=== PATIENT | male | born 1960 | race Two or more races ===

== ENCOUNTER 2016-10-09 10:29 | Emergency (ER) | payer OTHER ==
[2016-10-09 10:36] VITALS: BP 139/78; PULSE 94; TEMP 98.2; BMI 35.2
[2016-10-09] MEDS ORDERED: KETOROLAC TROMETHAMINE 60 MG/2 ML VIAL IM ONE (11:08)
[2016-10-09] MEDS ORDERED: KETOROLAC TROMETHAMINE 60 MG/2 ML VIAL ONE (11:13)
[2016-10-09 11:32] LABS: URINE APPEARANCE CLEAR; URINE BILIRUBIN NEGATIVE (NEGATIVE); URINE BLOOD NEGATIVE (NEGATIVE); URINE COLOR YELLOW; URINE GLUCOSE (UA) NEGATIVE (NEGATIVE); URINE KETONE NEGATIVE (NEGATIVE); URINE LEUK ESTERASE NEGATIVE (NEGATIVE); URINE NITRITE NEGATIVE (NEGATIVE); URINE PROTEIN NEGATIVE (NEGATIVE); URINE UROBILINOGEN NEGATIVE E.U./dl (0.2-1.0)
--- NOTE | 2016-10-09 11:46 | PDOC ---
History of Present Illness - General Chief Complaint: Back Pain Stated Complaint: BACK PAIN Time Seen by Provider: 10/09/16 10:48 History Source: Patient Exam Limitations: No Limitations - History of Present Illness Initial Comments: 10/09/16 11:01 55-year-old male presents to the ED with complaints of low back pain for the past week and a half. 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 Patient denies a previous workup including x-rays or CT. Patient states has had pain to the area in the past it is normally relieved with [id number] Tylenol or Motrin or icy hot. Patient states has tried these modalities with no improvement. Patient denies fever, chills, rash, or upper back pain. Patient denies history of diabetes, GI disorders, or kidney disease. Pt states pain is worsened with ambulation or standing. Patient denies any incontinence or saddle anesthesia. Occurred: reports: other Severity: reports: mild, moderate Pain Location: reports: back Method of Injury: Yes: unknown Loss of Consciousness: no loss of consciousness Past History - Past Medical History Allergies/Adverse Reactions: Allergies Allergy/AdvReac Type Severity Reaction Status Date / Time No Known Drug Allergies Allergy Verified 10/09/16 10:36 Home Medications: Ambulatory Orders Apremilast [Otezla] 30 mg PO BID 01/11/16 Hydrocodone/Acetaminophen [Hydrocodon-Acetaminophen 5-300] 1 each PO Q6H PRN # 60 tablet MDD 4 01/12/16 Metformin HCl 500 mg PO DAILY 01/12/16 Hypercholesterolemia: Yes Kidney Stones: Yes Liver Disease: Yes (FATTY LIVER) Other medical history: ARTHRITIS - Surgical History Appendectomy: Yes - Immunization History Immunization Up to Date: No - Psycho/Social/Smoking Cessation Hx Anxiety: No Suicidal Ideation: No Smoking Status: No Smoking History: Never smoked Have you smoked in the past 12 months: No Number of Cigarettes Smoked Daily: 0 If you are a former smoker, when did you quit?: 30YRS AGO Hx Alcohol Use: Yes (SOCIAL) Drug/Substance Use Hx: No Substance Use Type: None Hx Substance Use Treatment: No Review of Systems - Review of Systems Able to Perform ROS?: Yes Constitutional: No: Symptoms Reported HEENTM: No: Symptoms Reported Respiratory: No: Symptoms reported : No: Symptoms Reported Musculoskeletal: Yes: Back Pain Integumentary: No: Symptoms Reported Neurological: No: Symptoms reported Endocrine: No: Symptoms Reported Hematologic/Lymphatic: No: Symptoms Reported *Physical Exam - Vital Signs Last Vital Signs Temp Pulse Resp BP Pulse Ox 98.2 F 94 H 20 139/78 97 10/09/16 10:32 10/09/16 10:32 10/09/16 10:32 10/09/16 10:32 10/09/16 10:32 - Physical Exam General Appearance: Yes: Nourished, Appropriately Dressed. No: Apparent Distress HEENT: positive: EOMI Neck: positive: Supple. negative: Tender, Decreased range of motion Respiratory/Chest: positive: Lungs Clear, Normal Breath Sounds. negative: Respiratory Distress, Accessory Muscle Use Cardiovascular: positive: Regular Rhythm, Regular Rate. negative: Murmur Gastrointestinal/Abdominal: positive: Normal Bowel Sounds, Soft. negative: Distended Musculoskeletal: positive: Vertebral Tenderness (paraspinous muscle tenderness bilateral at l4-5 level). negative: CVA Tenderness Extremity: positive: Normal Capillary Refill Integumentary: positive: Normal Color, Warm, Moist Neurologic: positive: Motor Strength 5/5 (ambulatory, FWB to BLE , normal axial loading) ED Treatment Course - ADDITIONAL ORDERS Additional order review: Laboratory Results 10/09/16 11:15 Urine Color Yellow Urine Appearance Clear Urine pH 6.0 Ur Specific [place] 1.024 Urine Protein Negative Urine Glucose (UA) Negative Urine Ketones Negative Urine Blood Negative Urine Nitrite Negative Urine Bilirubin Negative Urine Urobilinogen Negative Ur Leukocyte Esterase Negative - RADIOLOGY Radiology Studies Ordered: Category Date Time Status SPINE-LUMBAR ONLY [RAD] Stat Radiology 10/09/16 11:07 Completed - Medications Given in the ED: ED Medications Discontinued Medications Generic Name Dose Route Start Last Admin Trade Name Freq PRN Reason Stop Dose Admin Ketorolac Tromethamine 60 mg 10/09/16 11:08 10/09/16 11:17 Toradol Injection - IM 10/09/16 11:09 60 mg ONCE ONE Administration Medical Decision Making - Medical Decision Making 10/09/16 11:05 Patient with low back pain. 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 Patient with likely lumbar strain without sciatica nerve involvement. Will rule out uti. Patient was ordered for urinalysis, lumbar x-ray and Toradol IM. 10/09/16 11:46 Laboratory Tests 10/09/16 11:15 Urine Glucose (UA) Negative Urine Blood Negative Urine Nitrite Negative Ur Leukocyte Esterase Negative 10/09/16 11:47 X-ray shows degenerative changes with what she with no signs of heavy vascular calcifications or SI joint involvement. Patient be discharged home with recommended patient to follow-up with orthopedic fell and to take NSAIDs such as Motrin for discomfort. 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 *DC/Admit/Observation/Transfer Diagnosis at time of Disposition: Strain of lumbar region Qualifiers: Encounter type: initial encounter Qualified Code(s): S39.012A - Strain of muscle, fascia and tendon of lower back, initial encounter - Discharge Dispostion Disposition: HOME Condition at time of disposition: Good - Referrals Referrals: Jean Garcia [Primary Care Provider] - Adam Davis MD [Staff Physician] - - Patient Instructions Printed Discharge Instructions: DI for Low Back Pain Additional Instructions: Take motrin 600mg every 8 hours for discomfort. Follow up with referred orthopedist. Return to the Ed if s/s worsen.
== END 2016-10-09 11:52 | disposition home or self-care (01) ==
LOC: JERFT 10:29
PROC: 3E0233Z Introduction of Anti-inflammatory into Muscle, Percutaneous Approach (ICD-10-PCS; principal; 2016-10-09)
DX: S39.012A Strain of muscle, fascia and tendon of lower back, initial encounter (principal); X50.0XXA Overexertion from strenuous movement or load, initial encounter; Y93.H9 Activity, other involving exterior property and land maintenance, building and construction; Y92.128 Other place in nursing home as the place of occurrence of the external cause; Y99.0 Civilian activity done for income or pay
CPT/HCPCS: 72100-TC; 81003; 99281-25

== ENCOUNTER 2017-01-21 15:11 | Emergency (ER) | payer OTHER ==
[2017-01-21 15:16] VITALS: BP 147/89; PULSE 75; TEMP 98; BMI 32.8
[2017-01-21] MEDS ORDERED: diazePAM 5 MG TABLET PO ONE (15:51)
[2017-01-21] MEDS ORDERED: KETOROLAC TROMETHAMINE 60 MG/2 ML VIAL IM ONE (15:51)
[2017-01-21] MEDS ORDERED: KETOROLAC TROMETHAMINE 60 MG/2 ML VIAL ONE (15:53)
[2017-01-21] MEDS ORDERED: diazePAM 5 MG TABLET ONE (15:54)
--- NOTE | 2017-01-21 16:02 | PDOC ---
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) Past History - Past Medical History Allergies/Adverse Reactions: Allergies Allergy/AdvReac Type Severity Reaction Status Date / Time No Known Drug Allergies Allergy Verified 01/21/17 15:12 Home Medications: Ambulatory Orders Apremilast [Otezla] 30 mg PO BID 01/11/16 Metformin HCl 500 mg PO DAILY 01/12/16 Cyclobenzaprine HCl [Flexeril 10 mg] 10 mg PO BID PRN 01/21/17 Meloxicam [Mobic (Nf) -] 15 mg PO ASDIR 01/21/17 Dialysis: Yes Hypercholesterolemia: Yes Kidney Stones: Yes Liver Disease: Yes (FATTY LIVER) Other medical history: psoriasis - Surgical History Appendectomy: Yes Neurologic Surgery: Yes (lt shoulder, hand) - Immunization History Immunization Up to Date: No - Psycho/Social/Smoking Cessation Hx Anxiety: No Suicidal Ideation: No Smoking Status: No Smoking History: Never smoked Have you smoked in the past 12 months: No Number of Cigarettes Smoked Daily: 0 If you are a former smoker, when did you quit?: 30YRS AGO Information on smoking cessation initiated: No Hx Alcohol Use: No Drug/Substance Use Hx: No Substance Use Type: None Hx Substance Use Treatment: No Review of Systems - Review of Systems Constitutional: No: Chills, Fever, Malaise Respiratory: No: Cough ABD/GI: No: Symptoms Reported : Yes: Frequency. No: Dysuria, Hematuria, Incontinence Musculoskeletal: Yes: Back Pain, Muscle Pain. No: Neck Pain Integumentary: No: Symptoms Reported Neurological: No: Numbness, Paresthesia, Tingling *Physical Exam - Vital Signs Last Vital Signs Temp Pulse Resp BP Pulse Ox 98.0 F 75 18 147/89 100 01/21/17 15:12 01/21/17 15:12 01/21/17 15:12 01/21/17 15:12 01/21/17 15:12 - Physical Exam General Appearance: Yes: Appropriately Dressed, Mild Distress. No: Apparent Distress HEENT: negative: TMs Normal Neck: positive: Supple. negative: Tender, Rigid Respiratory/Chest: positive: Lungs Clear, Normal Breath Sounds. negative: Respiratory Distress, Accessory Muscle Use Cardiovascular: positive: Regular Rhythm, Regular Rate. 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 negative: Sensory Deficit, Babinski ED Treatment Course - Medications Given in the ED: ED Medications Discontinued Medications Generic Name Dose Route Start Last Admin Trade Name Freq PRN Reason Stop Dose Admin Diazepam 5 mg 01/21/17 15:51 01/21/17 15:58 Valium - PO 01/21/17 15:52 5 mg ONCE ONE Administration Ketorolac Tromethamine 60 mg 01/21/17 15:51 01/21/17 15:58 Toradol Injection - IM 01/21/17 15:52 60 mg ONCE ONE Administration Medical Decision Making - Medical Decision Making 01/21/17 16:51 feeling much better post toradol and valium; has appt with local MD on Monday with MRI to be scheduled; UA= wnl *DC/Admit/Observation/Transfer Diagnosis at time of Disposition: Lower back pain Qualifiers: Chronicity: acute Back pain laterality: midline Sciatica presence: without sciatica Qualified Code(s): M54.5 - Low back pain - Discharge Dispostion Disposition: HOME Condition at time of disposition: Stable Admit: No - Patient Instructions Additional Instructions: please see local MD on Monday as planned; use meds by Local MD starting tomorrow - Post Discharge Activity Work/School Note: Back to Work
[2017-01-21 16:24] LABS: URINE APPEARANCE CLEAR; URINE BILIRUBIN NEGATIVE (NEGATIVE); URINE BLOOD NEGATIVE (NEGATIVE); URINE COLOR YELLOW; URINE GLUCOSE (UA) NEGATIVE (NEGATIVE); URINE KETONE NEGATIVE (NEGATIVE); URINE LEUK ESTERASE NEGATIVE (NEGATIVE); URINE NITRITE NEGATIVE (NEGATIVE); URINE PROTEIN NEGATIVE (NEGATIVE); URINE UROBILINOGEN NEGATIVE E.U./dl (0.2-1.0)
== END 2017-01-21 17:04 | disposition home or self-care (01) ==
LOC: JERFT 15:11
PROC: 3E0233Z Introduction of Anti-inflammatory into Muscle, Percutaneous Approach (ICD-10-PCS; principal; 2017-01-21)
DX: M54.5 Low back pain (principal); X50.0XXA Overexertion from strenuous movement or load, initial encounter; Y93.H9 Activity, other involving exterior property and land maintenance, building and construction; Y92.128 Other place in nursing home as the place of occurrence of the external cause; Y99.0 Civilian activity done for income or pay; E11.9 Type 2 diabetes mellitus without complications; Z79.84 Long term (current) use of oral hypoglycemic drugs; E78.00 Pure hypercholesterolemia, unspecified; L40.9 Psoriasis, unspecified; Z87.442 Personal history of urinary calculi
CPT/HCPCS: 81003; 99281-25

== ENCOUNTER → 2017-02-27 | Emergency (ER) | payer OTHER ==
[~2017-02-27] MED LIST: ACETAMINOPHEN 325 MG TABLET (FP) ONE; ACETAMINOPHEN 500 MG TABLET (FP) PO ONE
[2017-02-27 10:25] VITALS: BMI 33.6
[2017-02-27 11:10] LABS: BASOPHIL 0.6 % (0-2.0); MCH 30.6 pg (25.7-33.7); MCHC 32.9 g/dl (32.0-35.9); MEAN CELL VOLUME 92.9 fl (80-96); MEAN PLT VOLUME 9.1 fl (7.5-11.1); NEUTROPHILS 71.4 % (42.8-82.8); PLATELET COUNT 175 K/MM3 (134-434); RDW 13.7 % (11.9-15.9); WHITE BLOOD COUNT 7.5 K/mm3 (4.0-10.0)
[2017-02-27 11:24] LABS: INR 1.15 (0.82-1.09); PROTHROMBIN TIME (PATIENT) 12.7 SEC (9.98-11.88)
[2017-02-27 11:30] LABS: ALBUMIN 3.8 g/dl (3.4-5.0); ALK PHOS 71 U/L (45-117); ANION GAP 10 (8-16); BILIRUBIN,TOTAL 0.5 mg/dL (0.2-1.0); CALCIUM 8.8 mg/dL (8.5-10.1); CO2 26 mmol/L (21-32); COCKROFT - GAULT 164.47; CREATININE 0.7 mg/dL (0.7-1.3); GLUCOSE,RANDOM 109 mg/dL (74-106); SGPT/ALT 40 U/L (12-78)
[2017-02-27 11:33] LABS: SGOT/AST 32 U/L (15-37)
--- NOTE | 2017-02-27 11:33 | PDOC ---
History of Present Illness - General Chief Complaint: Pain, Acute Stated Complaint: LEG PAIN Time Seen by Provider: 02/27/17 10:30 History Source: Patient Exam Limitations: No Limitations - History of Present Illness Initial Comments: 02/27/17 11:24 CHIEF COMPLAINT: Leg pain HISTORY OF PRESENT ILLNESS: This is a 56 year old male with a history of psoriasis and psoriatic arthritis on apremilast and NIDDM who presents for evaluation of left leg pain since Monday (3 days). He traveled to [facility] ( 5 hr flight) on 02/08. His leg began hurting while he was there, and he flew back yesterday. He denies injury or strain. He denies smoking, recent trauma or surgery, family/personal history of hypercoaguability, and testosterone use. He has not had chest pain or shortness of breath. V/s on arrival are unremarkable. PCP is Dr. Garcia (patient saw him in the office today and was sent here for further evaluation) REVIEW OF SYSTEMS: GENERAL/CONSTITUTIONAL: No fever or chills. No weakness. No weight change. HEAD, EYES, EARS, NOSE AND THROAT: No change in vision. No ear pain or discharge. No sore throat. CARDIOVASCULAR: No chest pain or palpitations. RESPIRATORY: No cough, wheezing, or shortness of breath. GASTROINTESTINAL: No nausea, vomiting, diarrhea or constipation. GENITOURINARY: No dysuria, frequency, or change in urination. MUSCULOSKELETAL: Left calf, posterior knee, and thigh pain. SKIN: No rash or easy bruising. NEUROLOGIC: No headache, vertigo, loss of consciousness, or loss of sensation. PSYCHIATRIC: No depression or anxiety. ENDOCRINE: No increased thirst. No abnormal weight change. HEMATOLOGIC/LYMPHATIC: No anemia, easy bleeding, or history of blood clots. ALLERGIC/IMMUNOLOGIC: No hives or skin allergy. No latex allergy. PHYSICAL EXAM: GENERAL: The patient is awake, alert, and fully oriented, in no acute distress. HEAD: Normal with no signs of trauma. ENT: Pupils equal, round and reactive to light, extraocular movements intact, sclera anicteric, conjunctiva clear. Neck supple. LUNGS: Clear to auscultation bilaterally. Normal excursion. No respiratory distress or use of accessory muscles. CV: RRR, S1/S2, no MRG. Cap refill < 2 sec. ABDOMEN: Soft, non-distended, non-tender. EXTREMITIES: Left calf tenderness, left posterior knee and thigh tenderness. No edema, warmth, or erythema. Normal ROM of knee. NEUROLOGICAL: Normal speech, normal gait. CN II-XII grossly intact. PSYCH: Normal mood, normal affect. SKIN: Warm, dry, normal turgor, no rashes or lesions noted. Past History - Past Medical History Allergies/Adverse Reactions: Allergies Allergy/AdvReac Type Severity Reaction Status Date / Time No Known Drug Allergies Allergy Verified 02/27/17 10:21 Home Medications: Ambulatory Orders Apremilast [Otezla] 30 mg PO BID 01/11/16 Metformin HCl 500 mg PO DAILY 01/12/16 Tramadol HCl/Acetaminophen [Tramadol-Acetaminophn 37.5-325] 1 each PO Q8H PRN # 20 tablet MDD 3 02/27/17 Diabetes: Yes Dialysis: Yes Hypercholesterolemia: Yes Kidney Stones: Yes Liver Disease: Yes (FATTY LIVER) Other medical history: PSORIASIS ARITHRITIS - Surgical History Appendectomy: Yes Neurologic Surgery: Yes (lt shoulder, hand) - Immunization History Immunization Up to Date: No - Psycho/Social/Smoking Cessation Hx Anxiety: No Suicidal Ideation: No Smoking Status: No Smoking History: Never smoked Have you smoked in the past 12 months: No Number of Cigarettes Smoked Daily: 0 If you are a former smoker, when did you quit?: 30YRS AGO Information on smoking cessation initiated: No Hx Alcohol Use: No Drug/Substance Use Hx: No Substance Use Type: None Hx Substance Use Treatment: No *Physical Exam - Vital Signs Last Vital Signs Temp Pulse Resp BP Pulse Ox 98.1 F 74 18 147/78 100 02/27/17 10:21 02/27/17 10:21 02/27/17 10:21 02/27/17 10:21 02/27/17 10:21 ED Treatment Course - LABORATORY CBC & Chemistry Diagram: 02/27/17 10:54 02/27/17 10:54 - ADDITIONAL ORDERS Additional order review: 02/27/17 10:54 RBC 5.03 MCV 92.9 MCHC 32.9 RDW 13.7 MPV 9.1 Neutrophils % 71.4 Lymphocytes % 20.0 D Monocytes % 7.0 Eosinophils % 1.0 D Basophils % 0.6 - RADIOLOGY Radiology Studies Ordered: Category Date Time Status DUPLEX VASCUL US-1 LEG [US] Stat Ultrasound 02/27/17 10:43 Ordered - Medications Given in the ED: ED Medications Discontinued Medications Generic Name Dose Route Start Last Admin Trade Name Gold PRN Reason Stop Dose Admin Acetaminophen 975 mg 02/27/17 10:44 02/27/17 11:02 Tylenol - PO 02/27/17 10:45 975 mg ONCE ONE Administration Medical Decision Making - Medical Decision Making 02/27/17 11:35 A/P: 56 year old male with non-traumatic left calf, posterior knee, and thigh pain. 1. Basic labs 2. Tylenol 975 mg for pain 3. Duplex u/s to r/o DVT 4. Re-assess 02/27/17 11:55 Labs unremarkable. U/s negative for DVT. Will dc with PCP followup. *DC/Admit/Observation/Transfer Diagnosis at time of Disposition: Leg pain Qualifiers: Laterality: left Qualified Code(s): M79.605 - Pain in left leg - Discharge Dispostion Admit: No - Prescriptions Prescriptions: Tramadol HCl/Acetaminophen [Tramadol-Acetaminophn 37.5-325] 1 each PO Q8H PRN # 20 tablet MDD 3 PRN Reason: Pain - Referrals Referrals: Jean Garcia [Primary Care Provider] - Call tomorrow - Patient Instructions Printed Discharge Instructions: DI for Leg Pain Additional Instructions: You were seen today for calf/knee/thigh pain. Your ultrasound is negative for blood clots and your blood work is normal. Take pain medications as needed. Follow up with your primary care doctor this week. Return for worsening pain, swelling, or any other concerning symptoms. - Post Discharge Activity Work/School Note: Back to Work
[2017-02-27 12:17] VITALS: BP 132/70; PULSE 73; TEMP 98
== END | disposition home or self-care (01) ==
LOC: JER 10:19
DX: M79.605 Pain in left leg (principal); L40.50 Arthropathic psoriasis, unspecified; E11.9 Type 2 diabetes mellitus without complications; Z79.84 Long term (current) use of oral hypoglycemic drugs
CPT/HCPCS: 36415; 80053; 85025; 85610; 93971-TC; 99283-25

== ENCOUNTER 2017-04-14 07:48 | Inpatient (IN) | payer OTHER ==
[2017-03-24 10:50] VITALS: BMI 32.8
--- NOTE | 2017-04-05 14:28 | HP ---
[facility] - Chief Complaint Chief Complaint: left knee pain - Past Medical History Allergies/Adverse Reactions: Allergies Allergy/AdvReac Type Severity Reaction Status Date / Time No Known Drug Allergies Allergy Verified 03/24/17 10:31 - Current Medications Current Medications: Home Medications Medication Instructions Recorded Apremilast [Otezla] 30 mg PO BID 01/11/16 Metformin HCl 500 mg PO DAILY 01/12/16 Acetaminophen [Tylenol -] 500 mg PO BID 03/24/17 Clobetasol Prop 0.05% Tp Oint 60 gm TD DAILY 03/24/17 [Temovate (Nf)] Clobetasol Propionate/Emoll 100 gm TP DAILY 03/24/17 [Olux-E 0.05% Foam] Naproxen [Naprosyn -] 500 mg PO BID 03/24/17 Satellite Physical Exam - Physical Examination General Appearance: Well Nourished, Well Developed, Alert & Oriented x3 ENT: Clear Lung: Normal air movement Heart: Regular rate & rhythm Extremities: Other (left knee- + swelling, + ttp medially, decr rom, nvi xrays show medial compartment djd) Neurological: Intact, Alert, Oriented Satellite Impression/Plan - Impression/Plan Impression: left knee medial djd Operative Procedure: left medial jailene ukr Date to be Performed: 04/14/17
[~2017-04-14 07:48] MED LIST changes: -ACETAMINOPHEN 325 MG TABLET (FP) ONE; -ACETAMINOPHEN 500 MG TABLET (FP) PO ONE; +ROPIVICAINE 0.2%/MORPH PF/KETOROLAC - 51ML DISP.SYRINGE IA ONE
[2017-04-14] MEDS ORDERED: oxyCODONE HCL 10 MG SUSTAINED ACTING TABLET PO ONE (08:06)
[2017-04-14] MEDS ORDERED: GABAPENTIN 300 MG CAPSULE (FP) PO ONE (08:06)
[2017-04-14] MEDS ORDERED: TRANEXAMIC ACID 1000 MG/10 ML VIAL IVPUSH ONE (08:06)
[2017-04-14] MEDS ORDERED: CEFAZOLIN 2 GM in DEXTROSE 5%-WATER - 50 ML IVPB ONE (08:06)
[2017-04-14] MEDS ORDERED: CELECOXIB 200 MG CAPSULE PO ONE (08:06)
[2017-04-14] MEDS ORDERED: MIDAZOLAM HCL 2 MG/2 ML SINGLE DOSE VIAL ONE (09:26)
[2017-04-14] MEDS ORDERED: DEXAMETHASONE SOD PHOSPHATE/PF 10 MG/ML SDV ONE (09:27)
[2017-04-14] MEDS ORDERED: PROPOFOL 20 ML ONE ×2 (10:29→10:33)
[2017-04-14] MEDS ORDERED: VANCOMYCIN 1,000 MG VIAL (RESTRICTED TO ID ONLY) ONE (10:35)
[2017-04-14] MEDS ORDERED: ceFAZolin SODIUM 1 GM VIAL ONE ×2 (10:35)
[2017-04-14] MEDS ORDERED: THROMBIN (BOVINE) 5,000 UNIT VIAL TP ONE (11:31)
[2017-04-14] MEDS ORDERED: ROPIVICAINE 0.2%/MORPH PF/KETOROLAC - 51ML DISP.SYRINGE IA ONE (11:52)
[2017-04-14] MEDS ORDERED: MAG HYDROX/AL HYDROX/SIMETH 30 ML UNIT-DOSE CUP PO PRN (12:20)
[2017-04-14] MEDS ORDERED: ONDANSETRON 4 MG/2 ML VIAL IVPB PRN (12:20)
--- NOTE | 2017-04-14 12:23 | SURG ---
Surgery Clinical Trial Leader Note Clinical Trial Leader: Marzena Resendiz PA-C Date of Service: 04/14/17 Diagnosis: left knee medial djd Procedure: left medial jailene ukr I was present for the entirety of the operative procedure. For further detail, please refer to operative report. Visit type - Case Type Case Type: Scheduled Admission
--- NOTE | 2017-04-14 12:23 | OP ---
Operative Note - Note: Operative Date: 04/14/17 Pre-Operative Diagnosis: left knee medial djd Operation: left medial jailene ukr Post-Operative Diagnosis: Same as Pre-op Surgeon: Adam Davis Registered Nurse Fetal: Marzena Resendiz Anesthesiologist/EVS TECH: Juan Pablo Peterson Anesthesia: Spinal Estimated Blood Loss (mls): 150 Fluid Volume Replaced (mls): 800 Operative Report Dictated: Yes
[2017-04-14] MEDS ORDERED: LACTATED RINGERS SOLUTION 1,000 ML IV SCH (12:30)
[2017-04-14] MEDS ORDERED: oxyCODONE HCL 5 MG TABLET PO PRN ×2 (12:42)
[2017-04-14] MEDS: ACETAMINOPHEN 325 MG TABLET (FP) PO SCH ×4 (13:24→23:11)
[2017-04-14] MEDS ORDERED: INSULIN SLIDING SCALE (NOVOLOG) 1 VIAL SQ SCH ×2 (16:30)
[2017-04-14] MEDS: INSULIN SLIDING SCALE (NOVOLOG) 1 VIAL SQ SCH (16:42)
[2017-04-14] MEDS: CEFAZOLIN 1 GM/D5W 50 ML IVPB SCH (17:43)
[2017-04-14] MEDS: GABAPENTIN 300 MG CAPSULE (FP) PO SCH (21:57)
[2017-04-14] MEDS: SENNOSIDES/DOCUSATE COMBO (SENNA PLUS) TABLET (UD) PO SCH (21:58)
[2017-04-15] MEDS: CEFAZOLIN 1 GM/D5W 50 ML IVPB SCH (01:58)
[2017-04-15 06:45] VITALS: BP 137/72; PULSE 80; TEMP 98.1
[2017-04-15] MEDS: ACETAMINOPHEN 325 MG TABLET (FP) PO SCH ×2 (06:46→11:42)
[2017-04-15] MEDS: INSULIN SLIDING SCALE (NOVOLOG) 1 VIAL SQ SCH ×2 (06:47→11:41)
[2017-04-15] MEDS ORDERED: metFORMIN HCL 500 MG TABLET (FP) PO SCH (07:00)
[2017-04-15] MEDS ORDERED: ASPIRIN 325 MG TABLET PO SCH (08:00)
[2017-04-15 08:10] LABS: MCH 30.8 pg (25.7-33.7); MCHC 33.3 g/dl (32.0-35.9); MEAN CELL VOLUME 92.4 fl (80-96); MEAN PLT VOLUME 9.5 fl (7.5-11.1); PLATELET COUNT 184 K/MM3 (134-434); RDW 13.1 % (11.9-15.9); WHITE BLOOD COUNT 15.2 K/mm3 (4.0-10.8)
[2017-04-15 08:20] LABS: ANION GAP 7 (8-16); CALCIUM 9.3 mg/dl (8.4-10.2); CO2 24 mmol/L (22-28); CREATININE 0.7 mg/dl (0.6-1.3); GLUCOSE,RANDOM 167 mg/dl (74-106)
[2017-04-15] MEDS: GABAPENTIN 300 MG CAPSULE (FP) PO SCH (09:20)
[2017-04-15] MEDS: SENNOSIDES/DOCUSATE COMBO (SENNA PLUS) TABLET (UD) PO SCH (09:20)
--- NOTE | 2017-04-15 09:37 | SPEC ---
DATE OF OPERATION: 04/14/2017 OPERATION: Left medial unicompartmental knee replacement with robotic-assisted navigation (MAKOplasty) and patelloplasty. PREOPERATIVE DIAGNOSIS: Degenerative joint disease, left knee. POSTOPERATIVE DIAGNOSIS: Degenerative joint disease, left knee. SURGEON: Adam Davis M.D. [employer] CONSULTANT: Ina Doherty at [facility]. ANESTHESIA: Spinal and regional. CLOSURE: No. 4 femur, No. 4 tibia, 8 mm polyethylene, No. 1 Vicryl to fascia, 0 and 2-0 subcutaneous and 3-0 Monocryl subcuticular to skin with skin glue, 4-0 undyed Vicryl for pin sites. ESTIMATED BLOOD LOSS: Negligible. TOURNIQUET TIME: Less than 30 minutes. COMPLICATIONS: None. CONDITION: To recovery room in stable condition. PROCEDURE: Patient was taken to the operating room. Spinal and femoral block anesthesia was administered by the anesthesiologist. IV Kefzol and TXA were administered prophylactically prior to the case. A well-padded pneumatic tourniquet was placed on the left proximal thigh. The left lower extremity was prepped and draped in the usual sterile fashion. A 6 cm longitudinal incision was made along the medial retinaculum from mid patella toward the tibial tubercle. Hemostasis was achieved using Bovie cautery. Sharp dissection was carried down to the level of the capsule, which was opened the entire length of incision. A subperiosteal dissection in the anterior medial proximal tibia. Periosteal elevator was used to facilitate this dissection. Partial fat pad excision was performed to gain visualization. A femoral and tibial checkpoint were malleted into place. Two bicortical pins were drilled through small stab incisions into the femur 1 handbreadth above the patella. Two bicortical pins were drilled into the tibia 1 handbreadth below the tibial tubercle through small stab incisions as well. To these, pins were attached to clamp and the navigation arrays. The knee was then registered with the navigation device by ascertaining the center of rotation of the hip, both the medial and lateral malleoli, at approximately 50 points on the tibia and femur. Registration was within RAYMUNDO parameters, being less than half a millimeter. At this time, the medial osteophytes on both the femur and tibia were removed by use of rongeur. The knee was taken through a range of motion and with stressing the medial compartment open at 0, 30, 60, 90 and 120 degrees. Stress points were obtained in order to develop a flexion/extension and a tightness/looseness graph. The robotic navigation device obtained a virtual tracking of the knee and found that the traction was in excellent position. The components were manipulated virtually in order to obtain a flexion/extension, tightness/looseness graph which was then +/- 1 mm. The robot was then brought into the field and registered with the navigation device. The robot was then used to mark the bone on both the femur and the tibia to the specifications and direction of the navigation device. All excess bone and osteophytes and cartilage were removed, including the medial meniscus. Care was taken to protect the MCL throughout the case. The trial components were then placed into the knee with the appropriate polyethylene plastic trial liner. The knee was taken through a range of motion and the graph on the navigation device was then used again to confirm ideal position of the components and ideal tightness/looseness of the components. The trial components were removed, along with the checkpoints and the array. The knee was exsanguinated with an Esmarch bandage and tourniquet inflated to 175 mmHg. The knee was post-antibiotic irrigated and then dried and then Avitene and Gelfoam were placed to aid in hemostasis. The real components were then cemented in using modern generation cement techniques with antibiotics, cement and pressurization. All excess cement was removed. The knee was thoroughly inspected to remove any excess cement and bone fragments. The real polyethylene component was then clipped into place. Range of motion revealed excellent range of motion and good tensioning throughout. The knee was post-antibiotic irrigated. The fascia was closed using 2-0 Vicryl interrupted suture. The tourniquet was deflated. Total tourniquet time was less than 30 minutes. Hemostasis was obtained. Another dose of TXA was administered. The subcutaneous was closed with 2-0 Vicryl, 3-0 Monocryl subcuticular for skin. A pain cocktail was infused throughout the soft tissue. The pin sites were irrigated and closed with 4-0 Vicryl and skin glue was used for all incisions. Sterile Aquacel dressing was placed on all incisions followed by a dressing from the toes to the thigh. Patient was transferred to the recovery room in stable condition. No complications. Jarret [id number]
[2017-04-15] MEDS ORDERED: PANTOPRAZOLE 40 MG TABLET (FP) PO SCH (10:00)
[2017-04-15] MEDS ORDERED: MULTIVITAMINS (DAILY MVI) TABLET (FP) PO SCH (10:00)
[2017-04-15] MEDS ORDERED: PATIENT'S OWN MEDICATION (NON-FORMULARY) (Apremilast [Otezla] 30 MG) PO SCH (10:00)
== END 2017-04-15 13:10 | disposition home health service (06) | DRG 470 ==
LOC: FM/S 07:48 → EDSTATUS 09:30 → FM/S 13:31
PROVIDERS: ADMIT Orthopaedic Surgery; ATTEND Orthopaedic Surgery
PROC: 0QQF0ZZ Repair Left Patella, Open Approach (ICD-10-PCS; 2017-04-14)
PROC: 8E0Y0CZ Robotic Assisted Procedure of Lower Extremity, Open Approach (ICD-10-PCS; 2017-04-14)
PROC: 0SRD0L9 Replacement of Left Knee Joint with Medial Unicondylar Synthetic Substitute, Cemented, Open Approach (ICD-10-PCS; principal; 2017-04-14 10:47)
DX: M17.12 Unilateral primary osteoarthritis, left knee (principal); E66.9 Obesity, unspecified; Z68.32 Body mass index [BMI] 32.0-32.9, adult; E11.9 Type 2 diabetes mellitus without complications; Z79.84 Long term (current) use of oral hypoglycemic drugs; G47.30 Sleep apnea, unspecified
CPT/HCPCS: 36415; 73560-TC-LT; 80048; 85027; 94010; 94760; 97116-GP; 97161-GP

== ENCOUNTER 2019-05-12 20:57 | Emergency (ER) | payer OTHER ==
[2019-05-12 21:07] VITALS: BP 151/77; PULSE 70; TEMP 98.9; BMI 34.9
--- NOTE | 2019-05-12 21:35 | PDOC ---
History of Present Illness - General Chief Complaint: Pain Stated Complaint: BACK PAIN/WORK INJURY Time Seen by Provider: 05/12/19 21:31 - History of Present Illness Initial Comments: 05/12/19 21:34 58 -year-old male with lower back pain after lifting. No loss of bowel or bladder function or radicular symptoms. 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 Past History - Past Medical History Allergies/Adverse Reactions: Allergies Allergy/AdvReac Type Severity Reaction Status Date / Time No Known Drug Allergies Allergy Verified 05/12/19 21:04 Home Medications: Ambulatory Orders Apremilast [Otezla] 30 mg PO BID 01/11/16 metFORMIN HCL [Metformin HCl] 500 mg PO DAILY 01/12/16 Clobetasol Prop 0.05% Tp Oint [Temovate (Nf)] 60 gm TD DAILY 03/24/17 Cyclobenzaprine HCl [Flexeril 10 mg] 10 mg PO HS PRN #10 tablet 05/12/19 Anemia: No Asthma: No (CHILDHOOD) Cancer: No Cardiac Disorders: No CVA: No COPD: No CHF: No Dementia: No Diabetes: Yes (PRE-DIABETIC) Dialysis: Yes GI Disorders: No Disorders: No HTN: No Hypercholesterolemia: Yes Kidney Stones: Yes Liver Disease: Yes (FATTY LIVER) Seizures: No Thyroid Disease: No - Surgical History Abdominal Surgery: Yes (UMBILICAL HERNIA REPAIR OPEN) Appendectomy: Yes Cholecystectomy: No Neurologic Surgery: Yes (lt shoulder, hand) Orthopedic Surgery: Yes (RIGHT HAND TENDON REPAIR, LEFT SHOULDER OPEN TENDON REPAIR) - Immunization History Immunization Up to Date: No - Suicide/Smoking/Psychosocial Hx Smoking Status: No Smoking History: Former smoker Have you smoked in the past 12 months: No Number of Cigarettes Smoked Daily: 0 If you are a former smoker, when did you quit?: 30YRS AGO Information on smoking cessation initiated: No Hx Alcohol Use: No Drug/Substance Use Hx: No Substance Use Type: Alcohol Hx Substance Use Treatment: No Review of Systems - Review of Systems Musculoskeletal: Yes: Back Pain *Physical Exam - Vital Signs Last Vital Signs Temp Pulse Resp BP Pulse Ox 98.9 F 70 18 151/77 100 05/12/19 21:04 05/12/19 21:04 05/12/19 21:04 05/12/19 21:04 05/12/19 21:04 - Physical Exam Comments: 05/12/19 21:34 L spine skin color and temperature are normal. Range of motion is slightly limited. Mild right and left paralumbar musculature spasm and tenderness. No midline tenderness. 5 out of 5 strength bilateral lower extremities without gross sensory motor deficits. Neurovascular intact. Thighs and calves are soft and nontender. Medical Decision Making - Medical Decision Making 05/12/19 21:33 L spine strain Toradol in the emergency room follow-up with neurosurgery discussed use of home medications. 05/12/19 21:33 *DC/Admit/Observation/Transfer Diagnosis at time of Disposition: Lumbar spine strain - Discharge Dispostion Disposition: HOME Condition at time of disposition: Stable Decision to Admit order: No - Prescriptions Prescriptions: Cyclobenzaprine HCl [Flexeril 10 mg] 10 mg PO HS PRN #10 tablet PRN Reason: Muscle Spasms - Referrals Referrals: Jean Garcia [Primary Care Provider] - Rey Olsen MD, [facility] [Staff Physician] - - Patient Instructions Printed Discharge Instructions: Low Back Pain, DI for Low Back Pain Additional Instructions: Take the muscle relaxer as directed. Continue with your home medications. Follow -up with neurosurgery in 1-2 days for further evaluation and treatment options. Return to the emergency room for worsening symptoms. - Post Discharge Activity Forms/Work/School Notes: Back to Work
[2019-05-12] MEDS ORDERED: KETOROLAC TROMETHAMINE 60 MG/2 ML VIAL IM ONE (21:37)
[2019-05-12] MEDS ORDERED: KETOROLAC TROMETHAMINE 60 MG/2 ML VIAL ONE (21:38)
== END 2019-05-12 21:42 | disposition home or self-care (01) ==
LOC: JERFT 20:57
PROC: 3E0233Z Introduction of Anti-inflammatory into Muscle, Percutaneous Approach (ICD-10-PCS; principal; 2019-05-12)
DX: S39.012A Strain of muscle, fascia and tendon of lower back, initial encounter (principal); X50.0XXA Overexertion from strenuous movement or load, initial encounter; Y93.89 Activity, other specified; Y92.89 Other specified places as the place of occurrence of the external cause; Y99.0 Civilian activity done for income or pay; E11.9 Type 2 diabetes mellitus without complications; Z79.84 Long term (current) use of oral hypoglycemic drugs; E78.5 Hyperlipidemia, unspecified; K76.0 Fatty (change of) liver, not elsewhere classified; Z87.891 Personal history of nicotine dependence
CPT/HCPCS: 99281-25

== ENCOUNTER 2021-02-08 10:20 | Emergency (ER) | payer OTHER ==
[2021-02-08 10:26] VITALS: BP 180/88; PULSE 82; TEMP 97.9; BMI 34.4
== END 2021-02-08 12:58 | disposition home or self-care (01) ==
LOC: JER 10:20
DX: M79.604 Pain in right leg (principal)
CPT/HCPCS: 93971-TC; 99284-25

== ENCOUNTER 2022-03-11 00:07 | Emergency (ER) | payer OTHER ==
[2022-03-11 00:43] VITALS: BP 157/80; PULSE 82; TEMP 100.1; BMI 33.4
[2022-03-11] MEDS ORDERED: ACETAMINOPHEN 500 MG TABLET (FP) PO ONE (02:18)
[2022-03-11] MEDS ORDERED: ACETAMINOPHEN 325 MG TABLET (FP) ONE (02:20)
== END 2022-03-11 02:24 | disposition home or self-care (01) ==
LOC: JER 00:07
DX: R50.9 Fever, unspecified (principal)
CPT/HCPCS: 99283-25

== ENCOUNTER 2022-11-30 16:44 | Emergency (ER) | payer OTHER ==
[2022-11-30 16:58] VITALS: BP 131/77; PULSE 63; RESP 18; TEMP 98.2; BMI 33.4
[2022-11-30] MEDS ORDERED: METHOCARBAMOL 500 MG TABLET PO ONE (18:02)
[2022-11-30] MEDS ORDERED: KETOROLAC TROMETHAMINE 30 MG/1 ML VIAL IM ONE (18:02)
[2022-11-30] MEDS ORDERED: METHOCARBAMOL 500 MG TABLET ONE (18:28)
[2022-11-30] MEDS ORDERED: KETOROLAC TROMETHAMINE 30 MG/1 ML VIAL ONE (18:28)
== END 2022-11-30 18:34 | disposition home or self-care (01) ==
LOC: JERFT 16:44 → JER 16:44 → JERFT 18:34
DX: M54.50 Low back pain, unspecified (principal)
CPT/HCPCS: 99284-25

== ENCOUNTER 2024-02-03 12:12 | Emergency (ER) | payer OTHER ==
[2024-02-03 12:22] VITALS: BP 137/63; PULSE 64; RESP 18; TEMP 97.6; BMI 34.3
== END 2024-02-03 12:59 | disposition home or self-care (01) ==
LOC: JERFT 12:12
DX: L03.115 Cellulitis of right lower limb (principal)
CPT/HCPCS: 99283-25

== ENCOUNTER 2025-03-25 08:17 | Emergency (ER) | payer OTHER ==
[2025-03-25 08:26] VITALS: BP 135/55; PULSE 79; RESP 18; TEMP 98.1; BMI 31.0
[2025-03-25] MEDS ORDERED: LIDOCAINE 4% PATCH TP ONE (08:54)
[2025-03-25] MEDS ORDERED: KETOROLAC TROMETHAMINE 15 MG/ML VIAL ONE (08:55)
[2025-03-25] MEDS: LIDOCAINE 5% TOPICAL PATCH TP ONE (09:04)
[2025-03-25] MEDS: KETOROLAC TROMETHAMINE 15 MG/ML VIAL IM ONE (09:04)
[2025-03-25] MEDS ORDERED: LIDOCAINE PATCH REMOVAL MC SCH (22:00)
== END 2025-03-25 11:17 | disposition home or self-care (01) ==
LOC: JERFT 08:17
PROC: 3E0233Z Introduction of Anti-inflammatory into Muscle, Percutaneous Approach (ICD-10-PCS; principal; 2025-03-25)
DX: M54.9 Dorsalgia, unspecified (principal); G89.29 Other chronic pain
CPT/HCPCS: 73502-TC-LT-FY; 99284-25